=== PATIENT | male | born 1955 | race Caucasian/White ===

== ENCOUNTER → 2016-10-14 | Outpatient (CLI) | payer BC ==
[~2016-10-14] MED LIST: ALDACTONE50 MG PO; AMOXICILLIN250 MG PO; ASPIR 8181 MG PO; COZAAR25 MG PO; DIABETA5 MG PO; ENULOSE UD L30 ML/EA PO; FISH OIL1000 MG PO; GLUCOPHAGE500 MG PO; IBUPROFEN200 M1 PO; LASIX20 MG PO; LASIX40 MG PO; OCTREOTIDE500 MCG/2 IV; PROTONIX40 MG PO; THERAGRAN-M1 TAB PO; ULTRAM50 MG PO; ZOFRAN4 MG/5 ML PO
== END | disposition disaster alternative care site (69) ==
LOC: GRAD 10-05 09:00
DX: K74.69 Other cirrhosis of liver (principal); K80.20 Calculus of gallbladder without cholecystitis without obstruction; R16.1 Splenomegaly, not elsewhere classified; Z96.89 Presence of other specified functional implants

== ENCOUNTER → 2016-10-22 | Outpatient (CLI) | payer BC | END | disposition disaster alternative care site (69) | LOC: GRAD 08:00 | DX: R68.81 Early satiety (principal); R93.3 Abnormal findings on diagnostic imaging of other parts of digestive tract | CPT/HCPCS: A9541 ==